=== PATIENT | female | born 1995 | race Caucasian/White ===

== ENCOUNTER 2018-01-19 15:24 | Emergency (ER) | payer BC ==
--- NOTE | 2018-01-19 15:28 | ER Report ---
History and Physical Time Seen By MD: 15:28 (DESTINI CROUCH MD) HPI/ROS CHIEF COMPLAINT: right abd pain HISTORY OF PRESENT ILLNESS: This is a 22 year old female. She is having abdominal pain on the right side. Started as a dull ache this morning and then progressing. Pain is right in upper quadrant and flank as well as extending down to the lower right abdomen as well. No fevers or chills. No injury. She has had normal bowel movements, without diarrhea or constipation. No changes in urine and no dysuria. No change with eating. (DESTINI CROUCH MD) Allergies: Coded Allergies: No Known Drug Allergies (Unverified , 01/19/18) Home Meds Reported Medications Ibuprofen (ADVIL) 200 Mg Capsule, 1-2 CAP PO Q6-8H, CAPSULE 01/20/18 Oxycodone Hcl/Acetaminophen (PERCOCET 5-325 MG TABLET) 1 Each Tablet, 1-2 EACH PO Q4-6H, TAB 01/20/18 Ondansetron (ZOFRAN ODT) 4 Mg Tab.rapdis, 4 MG PO Q6H Y for NAUSEA, TAB.COLETTE 01/20/18 Discontinued Scripts Ondansetron (ZOFRAN ODT) 4 Mg Tab.rapdis, 4 MG PO every 6 hours Y for NAUSEA/ VOMITING, #12 TAB TAKE 1 TABLET BY MOUTH EVERY 12 HOURS Prov:AMY GOMES DO 01/19/18 Oxycodone Hcl/Acetaminophen (PERCOCET 5-325 MG TABLET) 1 Each Tablet, 1-2 EACH PO Q4-6H Y for PAIN, #15 Prov:AMY GOMES DO 01/19/18 Reviewed Nurses Notes: Yes (DESTINI CROUCH MD) Constitutional Vital Sign - Last 24 Hours 01/19/18 01/19/18 01/19/18 01/19/18 15:25 15:38 15:39 15:44 Temp 97.5 Pulse 61 66 63 Resp 16 B/P (MAP) 139/65 139/65 (89) Pulse Ox 97 98 99 O2 Delivery Room Air 01/19/18 01/19/18 01/19/18 01/19/18 15:45 15:49 15:54 15:59 Pulse 62 61 65 B/P (MAP) 137/111 (120) Pulse Ox 99 100 97 01/19/18 01/19/18 01/19/18 01/19/18 16:00 16:14 16:44 16:45 Pulse 56 78 B/P (MAP) 123/88 (100) 155/79 (104) Pulse Ox 99 93 01/19/18 01/19/18 01/19/18 01/19/18 16:59 17:00 17:05 17:15 Pulse 73 64 67 B/P (MAP) 170/97 (121) 177/91 (119) Pulse Ox 93 93 86 01/19/18 01/19/18 01/19/18 01/19/18 17:30 17:35 17:40 17:45 Pulse 64 53 ??? B/P (MAP) 160/81 (107) 150/83 (105) Pulse Ox 94 98 96 01/19/18 01/19/18 01/19/18 01/19/18 18:00 18:10 18:15 18:30 Pulse ??? B/P (MAP) 173/100 (124) 174/69 (104) 168/90 (116) Pulse Ox 88 01/19/18 01/19/18 01/19/18 01/19/18 18:40 18:45 19:00 19:10 Pulse 65 76 B/P (MAP) 168/100 (122) 156/97 (116) Pulse Ox 94 95 01/19/18 01/19/18 01/19/18 01/19/18 19:15 19:30 19:40 19:45 Pulse 61 B/P (MAP) 162/85 (110) 160/92 (114) 160/85 (110) Pulse Ox 90 01/19/18 01/19/18 01/19/18 01/19/18 20:00 20:10 20:15 20:20 Pulse 61 57 B/P (MAP) 174/96 (122) 184/99 (127) Pulse Ox 100 100 01/19/18 01/19/18 20:30 20:37 Pulse 85 Resp 16 B/P (MAP) 169/82 (111) 158/87 (110) Pulse Ox 95 O2 Delivery Room Air (AMY GOMES DO) Physical Exam General Appearance: The patient is alert. Mild acute distress because of pain. Eyes: Pupils are equal, round. No pallor, injection or icterus. ENT: Mucous membranes are moist. Normal oral mucosa. Posterior oropharynx is normal. Neck: Supple and non tender. Respiratory: Lungs are clear to auscultation. Cardiovascular: Regular rate and rhythm. No murmurs, gallops or rubs. Normal capillary refill. Gastrointestinal: Abdomen is soft, tender in right upper quadrant. Pain in the right flank/CVA area as well. Some pain down into the right lower abdomen. Nondistended. Guarding and rebound present. Normal active bowel sounds. Neurological: Alert and oriented x3. No focal neurologic deficits Skin: Warm and dry. Musculoskeletal: Extremities are nontender. No tenderness in palpation of the cervical, thoracic and lumbar spine. DIFFERENTIAL DIAGNOSIS: After history and physical exam, differential diagnosis was considered for flank pain including but not limited to musculoskeletal causes, kidney stone, pyelonephritis, shingles, and intra-abdominal causes such as diverticulitis, cholecystitis and appendicitis. (DESTINI CROUCH MD) Medical Decision Making Data Points Result Diagram: 01/19/18 1444 01/19/18 1444 Laboratory Hematology Test 01/19/18 14:44 01/19/18 17:29 Red Blood Count 5.23 M/uL (4.17-5.56) Mean Corpuscular Volume 86.9 fL (80.0-96.0) Mean Corpuscular Hemoglobin 29.5 pg (26.0-33.0) Mean Corpuscular Hemoglobin Concent 33.9 g/dL (32.0-36.0) Red Cell Distribution Width 13.6 % (11.5-14.5) Mean Platelet Volume 9.5 fL (7.2-11.1) Neutrophils (%) (Auto) 74.7 % (39.4-72.5) Lymphocytes (%) (Auto) 17.8 % (17.6-49.6) Monocytes (%) (Auto) 5.9 % (4.1-12.4) Eosinophils (%) (Auto) 1.0 % (0.4-6.7) Basophils (%) (Auto) 0.6 % (0.3-1.4) Nucleated RBC Relative Count (auto) 0.0 /100WBC Neutrophils # (Auto) 10.5 K/uL (2.0-7.4) Lymphocytes # (Auto) 2.5 K/uL (1.3-3.6) Monocytes # (Auto) 0.8 K/uL (0.3-1.0) Eosinophils # (Auto) 0.1 K/uL (0.0-0.5) Basophils # (Auto) 0.1 K/uL (0.0-0.1) Nucleated RBC Absolute Count (auto) 0.00 K/uL Sodium Level 140 mmol/L (137-145) Potassium Level 4.5 mmol/L (3.5-5.0) Chloride Level 102 mmol/L (98-107) Carbon Dioxide Level 21 mmol/L (22-31) Blood Urea Nitrogen 11 mg/dl (7-18) Creatinine 0.80 mg/dl (0.52-1.04) Glomerular Filtration Rate Calc > 60.0 Random Glucose 141 mg/dl (75-110) Calcium Level 9.5 mg/dl (8.4-10.2) Total Bilirubin 0.5 mg/dl (0.2-1.3) Aspartate Amino Transf (AST/SGOT) 20 U/L (0-35) Alanine Aminotransferase (ALT/SGPT) 27 U/L (0-56) Alkaline Phosphatase 116 U/L (0-126) C-Reactive Protein 1.2 mg/dl (<1.0) Total Protein 7.8 gm/dl (6.3-8.2) Albumin 4.4 g/dl (3.5-5.0) Amylase Level 58 U/L (0-110) Lipase 40 U/L (23-300) Human Chorionic Gonadotropin, Qual Negative (NEGATIVE) Urine Color Yellow Urine Clarity Slightly-cloudy Urine pH 6.0 pH (4.8-9.5) Urine Specific [place] 1.055 Urine Protein Negative mg/dL (NEGATIVE) Urine Glucose (UA) Negative mg/dL (NEGATIVE) Urine Ketones Trace mg/dL (NEGATIVE) Urine Blood Negative (NEGATIVE) Urine Nitrite Negative (NEGATIVE) Urine Bilirubin Negative (NEGATIVE) Urine Urobilinogen Negative mg/dL (0.2-1.9) Urine Leukocyte Esterase Moderate (NEGATIVE) Urine RBC None /HPF (0-2/HPF) Urine WBC 4 /HPF (0-5/HPF) Urine Squamous Epithelial Cells Many /LPF (</=FEW) Urine Bacteria Few /HPF (NONE-FEW) Urine Mucus Few /HPF (NONE-FEW) Chemistry Test 4/6/18 14:44 01/19/18 17:29 White Blood Count 14.1 k/uL (4.5-11.0) Red Blood Count 5.23 M/uL (4.17-5.56) Hemoglobin 15.4 g/dL (12.0-16.0) Hematocrit 45.4 % (34.0-47.0) Mean Corpuscular Volume 86.9 fL (80.0-96.0) Mean Corpuscular Hemoglobin 29.5 pg (26.0-33.0) Mean Corpuscular Hemoglobin Concent 33.9 g/dL (32.0-36.0) Red Cell Distribution Width 13.6 % (11.5-14.5) Platelet Count 307 K/uL (150-450) Mean Platelet Volume 9.5 fL (7.2-11.1) Neutrophils (%) (Auto) 74.7 % (39.4-72.5) Lymphocytes (%) (Auto) 17.8 % (17.6-49.6) Monocytes (%) (Auto) 5.9 % (4.1-12.4) Eosinophils (%) (Auto) 1.0 % (0.4-6.7) Basophils (%) (Auto) 0.6 % (0.3-1.4) Nucleated RBC Relative Count (auto) 0.0 /100WBC Neutrophils # (Auto) 10.5 K/uL (2.0-7.4) Lymphocytes # (Auto) 2.5 K/uL (1.3-3.6) Monocytes # (Auto) 0.8 K/uL (0.3-1.0) Eosinophils # (Auto) 0.1 K/uL (0.0-0.5) Basophils # (Auto) 0.1 K/uL (0.0-0.1) Nucleated RBC Absolute Count (auto) 0.00 K/uL Glomerular Filtration Rate Calc > 60.0 Calcium Level 9.5 mg/dl (8.4-10.2) Total Bilirubin 0.5 mg/dl (0.2-1.3) Aspartate Amino Transf (AST/SGOT) 20 U/L (0-35) Alanine Aminotransferase (ALT/SGPT) 27 U/L (0-56) Alkaline Phosphatase 116 U/L (0-126) C-Reactive Protein 1.2 mg/dl (<1.0) Total Protein 7.8 gm/dl (6.3-8.2) Albumin 4.4 g/dl (3.5-5.0) Amylase Level 58 U/L (0-110) Lipase 40 U/L (23-300) Human Chorionic Gonadotropin, Qual Negative (NEGATIVE) Urine Color Yellow Urine Clarity Slightly-cloudy Urine pH 6.0 pH (4.8-9.5) Urine Specific [place] 1.055 Urine Protein Negative mg/dL (NEGATIVE) Urine Glucose (UA) Negative mg/dL (NEGATIVE) Urine Ketones Trace mg/dL (NEGATIVE) Urine Blood Negative (NEGATIVE) Urine Nitrite Negative (NEGATIVE) Urine Bilirubin Negative (NEGATIVE) Urine Urobilinogen Negative mg/dL (0.2-1.9) Urine Leukocyte Esterase Moderate (NEGATIVE) Urine RBC None /HPF (0-2/HPF) Urine WBC 4 /HPF (0-5/HPF) Urine Squamous Epithelial Cells Many /LPF (</=FEW) Urine Bacteria Few /HPF (NONE-FEW) Urine Mucus Few /HPF (NONE-FEW) Urinalysis Test 01/19/18 17:29 Urine Color Yellow Urine Clarity Slightly-cloudy Urine pH 6.0 pH (4.8-9.5) Urine Specific [place] 1.055 Urine Protein Negative mg/dL (NEGATIVE) Urine Glucose (UA) Negative mg/dL (NEGATIVE) Urine Ketones Trace mg/dL (NEGATIVE) Urine Blood Negative (NEGATIVE) Urine Nitrite Negative (NEGATIVE) Urine Bilirubin Negative (NEGATIVE) Urine Urobilinogen Negative mg/dL (0.2-1.9) Urine Leukocyte Esterase Moderate (NEGATIVE) Urine RBC None /HPF (0-2/HPF) Urine WBC 4 /HPF (0-5/HPF) Urine Squamous Epithelial Cells Many /LPF (</=FEW) Urine Bacteria Few /HPF (NONE-FEW) Urine Mucus Few /HPF (NONE-FEW) (AMY GOMES DO) EKG/Imaging Imaging EXAMINATION: CT abdomen and pelvis with IV contrast HISTORY: Right-sided abdominal and flank pain. TECHNIQUE: Axial CT images of the abdomen and pelvis were obtained with IV contrast, with coronal and sagittal 2D reconstructed images. One of the following dose optimization techniques was utilized in the performance of this exam: Automated exposure control; adjustment of the mA and/ or kV according to the patient's size; or use of an iterative reconstruction technique. Specific details can be referenced in the facility's radiology CT exam operational policy. Contrast: 75 mL of IV Isovue-370. COMPARISON: None. FINDINGS: Image quality is partially degraded by respiratory motion artifact, as well as artifact related to patient body habitus. Liver: Negative. Gallbladder and bile ducts: Negative. Spleen: Negative. Pancreas: Negative. Adrenal glands: There is mild diffuse thickening of the right adrenal gland with surrounding periadrenal stranding. No localized adrenal nodule or mass. The left adrenal gland is unremarkable. Kidneys: Negative. No hydronephrosis or urinary calculi. The kidneys enhance normally. Bowel and peritoneum: The small bowel and colon are normal in caliber, without evidence of obstruction or any focal inflammatory process. No bowel wall thickening. Unremarkable appendix in the right lower quadrant. No free fluid or free intraperitoneal air. Pelvic structures: Unremarkable by CT. No large adnexal cyst in the pelvis. Lymph node assessment: Negative. Vessels: Negative. Musculoskeletal: Negative. Body wall: Negative. Lung bases: Negative. IMPRESSION: 1. There is mild diffuse thickening of the right adrenal gland with surrounding periadrenal stranding. No localized mass or nodule. CT appearance is most compatible with a mild localized adrenal hemorrhage. 2. No other acute intra-abdominal findings by CT. No other source for right- sided abdominal pain is identified. 3. Unremarkable right kidney, without urinary calculi or hydronephrosis. 4. Normal appendix. Findings were discussed with DESTINI CROUCH at 01/19/2018 5:23 PM. (DESTINI CROUCH MD) Imaging Results: Ultrasound of the right upper quadrant was obtained. The results of the study are EXAMINATION: Right upper quadrant abdominal ultrasound HISTORY: Right upper quadrant abdominal pain. COMPARISON: CT abdomen/pelvis performed today. FINDINGS: Technically limited study due to patient body habitus. Liver: Normal hepatic echotexture. No focal liver lesions identified. Antegrade flow is visualized in the main portal vein. Gallbladder: Normal sonographic appearance of the gallbladder, without evidence of stones or sludge. No gallbladder wall thickening or pericholecystic fluid. Negative sonographic Coburn sign. Bile Ducts: No biliary ductal dilatation. The common duct measures 2 mm. Pancreas: Poorly visualized, obscured by overlying bowel gas. Right kidney: Normal echogenicity of the right kidney. The renal cortical parenchyma is maintained. No hydronephrosis. The right kidney measures 10.1 cm in length. Aorta: Patent and normal in caliber. IVC: Patent. Ascites: None. IMPRESSION: 1. Unremarkable gallbladder and bile ducts. 2. Poor visualization of the pancreas. The study was read by the radiologist. I viewed the images myself on the PACS system. (AMY GOMES DO) ED Course/Re-evaluation Clinical Indication for ER IV: Hydration, IV Access ED Course Mild increase in white blood cell count to 14.1 and mild shift in differential. Liver function tests are negative as is amylase and lipase. Mild increase in CRP. Urinalysis with some Leukocyte Esterase and signs of contamination, and will obtain a urine culture. (DESTINI CROUCH MD) Clinical Indication for ER IV: Hydration, IV Access ED Course Care was assumed at shift change from Dr. Lawson with a diagnostic ultrasound of the right upper quadrant pending. The ultrasound was unremarkable for acute gallbladder disease or findings in the right upper quadrant. Patient's CT scan showed a right adrenal hemorrhage. Patient's pain was controlled here with Dilaudid IV. She is discharged home to follow-up with internal medicine on Monday on Percocet and Zofran. Decision to Disposition Date: Jan 19, 2018 Decision to Disposition Time: 19:36 (AMY GOMES DO) Depart Departure Latest Vital Signs Vital Signs Date Time Temp Pulse Resp B/P (MAP) Pulse Ox O2 Delivery O2 Flow Rate FiO2 01/19/18 20:37 85 16 158/87 (110) 95 Room Air 01/19/18 15:25 97.5 (AMY GOMES DO) Impression: Primary Impression: Right upper quadrant abdominal pain Additional Impression: Adrenal hemorrhage Condition: Improved Disposition: HOME OR SELF-CARE Referrals: AYDEN JESUS MD, FARRUKH MD Patient Instructions: Abdominal Pain (ED) Additional Instructions: Do not take ibuprofen, Aleve or aspirin Follow-up with primary care early next week for continued monitoring Problem Qualifiers DESTINI CROUCH MD Jan 19, 2018 15:28 AMY GOMES DO Jan 19, 2018 19:40
[2018-01-19] MEDS ORDERED: MORPHINE 4 MG/ML SDV IVP ONE ×2 (15:30→17:10)
[2018-01-19] MEDS ORDERED: NS(*) 0.9% 1000 ML BAG 1,000 ML IV ONE (15:30)
[2018-01-19] MEDS ORDERED: ONDANSETRON 4 MG/2 ML VIAL IVP ONE ×2 (15:30→17:10)
[2018-01-19] MEDS ORDERED: IOPAMIDOL 76% 75 ML INFUS BTL 75 ML ONE (15:42)
[2018-01-19 16:02] LABS: PLATELET COUNT, AUTOMATED 307 K/uL (150-450)
--- NOTE | 2018-01-19 17:27 | RADIOLOGY IMAGING REPORT ---
FACILITY: [facility] PATIENT NAME: Edie Steiner : 1995 MR: [id number] V: [id number] EXAM DATE: ORDERING PHYSICIAN: DESTINI CROUCH TECHNOLOGIST: Location: [facility] - [place] Patient: Edie Steiner : 1995 Visit/Account:[id number] Date of Sevice: 01/19/2018 EXAMINATION: CT abdomen and pelvis with IV contrast HISTORY: Right-sided abdominal and flank pain. TECHNIQUE: Axial CT images of the abdomen and pelvis were obtained with IV contrast, with coronal a nd sagittal 2D reconstructed images. One of the following dose optimization techniques was utilized in the performance of this exam: Autom ated exposure control; adjustment of the mA and/or kV according to the patient's size; or use of an i terative reconstruction technique. Specific details can be referenced in the facility's radiology C T exam operational policy. Contrast: 75 mL of IV Isovue-370. COMPARISON: None. FINDINGS: Image quality is partially degraded by respiratory motion artifact, as well as artifact related to pa tient body habitus. Liver: Negative. Gallbladder and bile ducts: Negative. Spleen: Negative. Pancreas: Negative. Adrenal glands: There is mild diffuse thickening of the right adrenal gland with surrounding periadr enal stranding. No localized adrenal nodule or mass. The left adrenal gland is unremarkable. Kidneys: Negative. No hydronephrosis or urinary calculi. The kidneys enhance normally. Bowel and peritoneum: The small bowel and colon are normal in caliber, without evidence of obstructi on or any focal inflammatory process. No bowel wall thickening. Unremarkable appendix in the right lo wer quadrant. No free fluid or free intraperitoneal air. Pelvic structures: Unremarkable by CT. No large adnexal cyst in the pelvis. Lymph node assessment: Negative. Vessels: Negative. Musculoskeletal: Negative. Body wall: Negative. Lung bases: Negative. IMPRESSION: 1. There is mild diffuse thickening of the right adrenal gland with surrounding periadrenal stranding . No localized mass or nodule. CT appearance is most compatible with a mild localized adrenal hemorrh age. 2. No other acute intra-abdominal findings by CT. No other source for right-sided abdominal pain is i dentified. 3. Unremarkable right kidney, without urinary calculi or hydronephrosis. 4. Normal appendix. Findings were discussed with DESTINI CROUCH at 01/19/2018 5:23 PM. Report Dictated By: Bryson Zamora MD at 01/19/2018 5:01 PM Report E-Signed By: Bryson Zamora MD at 01/19/2018 5:23 PM WSN:[id number]
[2018-01-19] MEDS ORDERED: HYDROmorphone* 1 MG/ML 1 MG/ML ML IVP ONE (19:25)
[2018-01-19] MEDS ORDERED: ONDA4TAB PO (19:39)
[2018-01-19] MEDS ORDERED: OXYC-865 PO (19:39)
--- NOTE | 2018-01-19 20:31 | RADIOLOGY IMAGING REPORT ---
FACILITY: [facility] PATIENT NAME: Edie Steiner : 1995 MR: [id number] V: [id number] EXAM DATE: ORDERING PHYSICIAN: DESTINI CROUCH TECHNOLOGIST: Location: [facility] - [place], [place] Patient: Edie Steiner : 1995 Visit/Account:[id number] Date of Sevice: 01/19/2018 EXAMINATION: Right upper quadrant abdominal ultrasound HISTORY: Right upper quadrant abdominal pain. COMPARISON: CT abdomen/pelvis performed today. FINDINGS: Technically limited study due to patient body habitus. Liver: Normal hepatic echotexture. No focal liver lesions identified. Antegrade flow is visualized in the main portal vein. Gallbladder: Normal sonographic appearance of the gallbladder, without evidence of stones or sludge. No gallbladder wall thickening or pericholecystic fluid. Negative sonographic Coburn sign. Bile Ducts: No biliary ductal dilatation. The common duct measures 2 mm. Pancreas: Poorly visualized, obscured by overlying bowel gas. Right kidney: Normal echogenicity of the right kidney. The renal cortical parenchyma is maintained. N o hydronephrosis. The right kidney measures 10.1 cm in length. Aorta: Patent and normal in caliber. IVC: Patent. Ascites: None. IMPRESSION: 1. Unremarkable gallbladder and bile ducts. 2. Poor visualization of the pancreas. Report Dictated By: Bryson Zamora MD at 01/19/2018 8:21 PM Report E-Signed By: Bryson Zamora MD at 01/19/2018 8:26 PM WSN:[id number]
[2018-01-19 20:37] VITALS: BP 158/87
[2018-01-20] MEDS ORDERED: OXYC-865 PO (06:00)
[2018-01-20] MEDS ORDERED: ONDA4TAB PO (06:00)
[2018-01-20] MEDS ORDERED: IBUP200C74 PO (09:06)
== END 2018-01-19 20:47 | disposition home or self-care (01) ==
LOC: ER 15:29
DX: E27.49 Other adrenocortical insufficiency (principal)
CPT/HCPCS: 74177; 76705; 81001; 82150; 83690; 84703; 85025; 86140; 96361; 96374; 96375; 96376; 99284; J1170; J2270; J2405; J7030; Q9967; 82040; 82247; 82310; 82374; 82435; 82565; 82947; 84075; 84132; 84155; 84295; 84450; 84460; 84520

== ENCOUNTER 2018-01-20 02:55 | Inpatient (IN) | payer BC ==
[~2018-01-20 02:55] MED LIST: ONDA4TAB PO; OXYC-865 PO
--- NOTE | 2018-01-20 02:59 | ER Report ---
History and Physical Time Seen By MD: 02:58 (AMY GOMES DO) HPI/ROS CHIEF COMPLAINT: Right abdominal pain, flank pain HISTORY OF PRESENT ILLNESS: 22-year-old female returns complaining of vomiting and pain in her right flank. Patient was earlier, diagnosed with a likely mild hemorrhage of her right adrenal gland. She had an extensive evaluation including CT scan and ultrasound. Patient left the ER with good pain control. Her pain came back and she tried to take oxycodone for pain relief, but she developed vomiting and was unable to keep her medication down. She now returns with intractable pain in her right flank. REVIEW OF SYSTEMS: Respiratory: No cough, no dyspnea. Cardiovascular: No chest pain, no palpitations. Gastrointestinal: As above Musculoskeletal: No back pain. (AMY GOEMS DO) Allergies: Coded Allergies: No Known Drug Allergies (Unverified , 01/19/18) Home Meds Reported Medications Ibuprofen (ADVIL) 200 Mg Capsule, 1-2 CAP PO Q6-8H, CAPSULE 01/20/18 Oxycodone Hcl/Acetaminophen (PERCOCET 5-325 MG TABLET) 1 Each Tablet, 1-2 EACH PO Q4-6H, TAB 01/20/18 Ondansetron (ZOFRAN ODT) 4 Mg Tab.rapdis, 4 MG PO Q6H Y for NAUSEA, TAB.COLETTE 01/20/18 Discontinued Scripts Ondansetron (ZOFRAN ODT) 4 Mg Tab.rapdis, 4 MG PO every 6 hours Y for NAUSEA/ VOMITING, #12 TAB TAKE 1 TABLET BY MOUTH EVERY 12 HOURS Prov:AMY GOMES DO 01/19/18 Oxycodone Hcl/Acetaminophen (PERCOCET 5-325 MG TABLET) 1 Each Tablet, 1-2 EACH PO Q4-6H Y for PAIN, #15 Prov:AMY GOMES DO 01/19/18 Reviewed Nurses Notes: Yes Old Medical Records Reviewed: Yes (AMY GOMES DO) Constitutional Vital Sign - Last 24 Hours 01/20/18 01/20/18 01/20/18 01/20/18 03:01 03:10 03:40 03:55 Temp 98.9 Pulse 109 72 97 93 Resp 24 Pulse Ox 94 97 95 100 O2 Delivery Room Air 01/20/18 01/20/18 01/20/18 01/20/18 04:00 04:10 04:15 04:20 Pulse 64 60 61 B/P (MAP) 180/87 (118) Pulse Ox 100 100 01/20/18 01/20/18 01/20/18 01/20/18 04:30 04:50 05:00 05:05 Pulse 54 58 B/P (MAP) 161/91 (114) 183/95 (124) Pulse Ox 100 100 01/20/18 01/20/18 01/20/18 01/20/18 05:10 05:25 05:30 05:35 Pulse ??? 104 57 70 B/P (MAP) 177/90 (119) Pulse Ox 100 97 99 97 01/20/18 01/20/18 01/20/18 01/20/18 05:50 05:55 06:00 06:10 Pulse 84 72 58 B/P (MAP) 176/78 (110) Pulse Ox 71 99 98 01/20/18 01/20/18 01/20/18 01/20/18 06:25 06:30 06:50 07:00 Pulse 64 59 B/P (MAP) 165/86 (112) 164/113 (130) Pulse Ox 96 99 (SHAKIR PAIZ MD) Physical Exam General Appearance: The patient is alert, has no immediate need for airway protection and no current signs of toxicity. Moderate distress, slightly pale appearing, skin warm and dry HEENT: Pupils equal and round no injection. Oropharynx without redness or exudate, mucous members are moist Respiratory: Chest is non tender, lungs are clear to auscultation. Cardiac: regular rate and rhythm Gastrointestinal: Abdomen is soft, mild right upper quadrant tenderness, no masses, bowel sounds normal. Musculoskeletal: Neck: Neck is supple and non tender. Extremities have full range of motion and are non tender. Skin: No rashes or lesions. DIFFERENTIAL DIAGNOSIS: After history and physical exam differential diagnosis was considered for abdominal pain including but not limited to appendicitis, cholecystitis, adrenal hemorrhage, infection, kidney stone, UTI, gastritis and urinary tract infection. (AMY GOMES DO) Medical Decision Making Data Points Result Diagram: 01/20/18 0330 01/20/18 0330 Laboratory Hematology Test 01/20/18 03:30 Red Blood Count 4.95 M/uL (4.17-5.56) Mean Corpuscular Volume 86.6 fL (80.0-96.0) Mean Corpuscular Hemoglobin 29.4 pg (26.0-33.0) Mean Corpuscular Hemoglobin Concent 34.0 g/dL (32.0-36.0) Red Cell Distribution Width 13.4 % (11.5-14.5) Mean Platelet Volume 9.5 fL (7.2-11.1) Neutrophils (%) (Auto) 79.8 % (39.4-72.5) Lymphocytes (%) (Auto) 14.1 % (17.6-49.6) Monocytes (%) (Auto) 5.3 % (4.1-12.4) Eosinophils (%) (Auto) 0.4 % (0.4-6.7) Basophils (%) (Auto) 0.4 % (0.3-1.4) Nucleated RBC Relative Count (auto) 0.1 /100WBC Neutrophils # (Auto) 13.2 K/uL (2.0-7.4) Lymphocytes # (Auto) 2.3 K/uL (1.3-3.6) Monocytes # (Auto) 0.9 K/uL (0.3-1.0) Eosinophils # (Auto) 0.1 K/uL (0.0-0.5) Basophils # (Auto) 0.1 K/uL (0.0-0.1) Nucleated RBC Absolute Count (auto) 0.02 K/uL Prothrombin Time 13.6 seconds (12.0-14.4) Prothromb Time International Ratio 1.04 Activated Partial Thromboplast Time 30 seconds (23-35) Sodium Level 139 mmol/L (137-145) Potassium Level 4.0 mmol/L (3.5-5.0) Chloride Level 101 mmol/L (98-107) Carbon Dioxide Level 24 mmol/L (22-31) Blood Urea Nitrogen 7 mg/dl (7-18) Creatinine 0.80 mg/dl (0.52-1.04) Glomerular Filtration Rate Calc > 60.0 Random Glucose 120 mg/dl (75-110) Calcium Level 9.4 mg/dl (8.4-10.2) Total Bilirubin 0.5 mg/dl (0.2-1.3) Aspartate Amino Transf (AST/SGOT) 17 U/L (0-35) Alanine Aminotransferase (ALT/SGPT) 24 U/L (0-56) Alkaline Phosphatase 114 U/L (0-126) Total Protein 7.5 gm/dl (6.3-8.2) Albumin 4.1 g/dl (3.5-5.0) Amylase Level 55 U/L (0-110) Lipase 60 U/L (23-300) Chemistry Test 01/20/18 03:30 White Blood Count 16.5 k/uL (4.5-11.0) Red Blood Count 4.95 M/uL (4.17-5.56) Hemoglobin 14.6 g/dL (12.0-16.0) Hematocrit 42.8 % (34.0-47.0) Mean Corpuscular Volume 86.6 fL (80.0-96.0) Mean Corpuscular Hemoglobin 29.4 pg (26.0-33.0) Mean Corpuscular Hemoglobin Concent 34.0 g/dL (32.0-36.0) Red Cell Distribution Width 13.4 % (11.5-14.5) Platelet Count 286 K/uL (150-450) Mean Platelet Volume 9.5 fL (7.2-11.1) Neutrophils (%) (Auto) 79.8 % (39.4-72.5) Lymphocytes (%) (Auto) 14.1 % (17.6-49.6) Monocytes (%) (Auto) 5.3 % (4.1-12.4) Eosinophils (%) (Auto) 0.4 % (0.4-6.7) Basophils (%) (Auto) 0.4 % (0.3-1.4) Nucleated RBC Relative Count (auto) 0.1 /100WBC Neutrophils # (Auto) 13.2 K/uL (2.0-7.4) Lymphocytes # (Auto) 2.3 K/uL (1.3-3.6) Monocytes # (Auto) 0.9 K/uL (0.3-1.0) Eosinophils # (Auto) 0.1 K/uL (0.0-0.5) Basophils # (Auto) 0.1 K/uL (0.0-0.1) Nucleated RBC Absolute Count (auto) 0.02 K/uL Prothrombin Time 13.6 seconds (12.0-14.4) Prothromb Time International Ratio 1.04 Activated Partial Thromboplast Time 30 seconds (23-35) Glomerular Filtration Rate Calc > 60.0 Calcium Level 9.4 mg/dl (8.4-10.2) Total Bilirubin 0.5 mg/dl (0.2-1.3) Aspartate Amino Transf (AST/SGOT) 17 U/L (0-35) Alanine Aminotransferase (ALT/SGPT) 24 U/L (0-56) Alkaline Phosphatase 114 U/L (0-126) Total Protein 7.5 gm/dl (6.3-8.2) Albumin 4.1 g/dl (3.5-5.0) Amylase Level 55 U/L (0-110) Lipase 60 U/L (23-300) Coagulation Test 01/20/18 03:30 Prothrombin Time 13.6 seconds Prothromb Time International Ratio 1.04 Activated Partial Thromboplast Time 30 seconds (SHAKIR PAIZ MD) EKG/Imaging Imaging Results: Ultrasound of the right upper quadrant was obtained. The results of the study are EXAMINATION: Right upper quadrant abdominal ultrasound HISTORY: Right upper quadrant abdominal pain. COMPARISON: CT abdomen/pelvis performed today. FINDINGS: Technically limited study due to patient body habitus. Liver: Normal hepatic echotexture. No focal liver lesions identified. Antegrade flow is visualized in the main portal vein. Gallbladder: Normal sonographic appearance of the gallbladder, without evidence of stones or sludge. No gallbladder wall thickening or pericholecystic fluid. Negative sonographic Coburn sign. Bile Ducts: No biliary ductal dilatation. The common duct measures 2 mm. Pancreas: Poorly visualized, obscured by overlying bowel gas. Right kidney: Normal echogenicity of the right kidney. The renal cortical parenchyma is maintained. No hydronephrosis. The right kidney measures 10.1 cm in length. Aorta: Patent and normal in caliber. IVC: Patent. Ascites: None. IMPRESSION: 1. Unremarkable gallbladder and bile ducts. 2. Poor visualization of the pancreas. The study was read by the radiologist. I viewed the images myself on the PACS system. (AMY GOMES DO) Imaging FACILITY: [facility] PATIENT NAME: Edie Steiner : 1995 MR: [id number] V: [id number] EXAM DATE: ORDERING PHYSICIAN: AMY GOMES TECHNOLOGIST: Location: [facility] - [place] Patient: Edie Steiner : 1995 Visit/Account:[id number] Date of Sevice: 01/20/2018 CT of the chest, abdomen, and pelvis without contrast: Indication: Right flank pain and upper quadrant pain. Follow-up evaluation of suspected right adrenal hemorrhage. Technique: Helical CT was performed through the chest, abdomen, and pelvis without contrast. Multiplanar reconstructions are reviewed. Image quality is suboptimal, due to artifact related to large body habitus. One of the following dose optimization techniques was utilized in the performance of this exam: Automated exposure control; adjustment of the mA and/ or kV according to the patient's size; or use of an iterative reconstruction technique. Specific details can be referenced in the facility's radiology CT exam operational policy. Comparison: A prior study from 01/19/2018. Findings: Lungs: Well-expanded. No focal or diffuse opacities. Pleural spaces: No evidence of effusion, focal pleural thickening, or pneumothorax. Mediastinum: Within normal limits. No evidence of hemorrhage, mass, or lymph node enlargement. The heart and pericardial soft tissues are unremarkable. Liver: Unremarkable and unchanged. Gallbladder and biliary tree: There is partial opacification of the gallbladder lumen, related to the prior CT contrast injection. The bile ducts are not dilated. Pancreas: Unremarkable and unchanged. Spleen: Unremarkable and unchanged. Adrenal glands: The right adrenal hemorrhage has increased in size, and now measures approximately 5.2 x 3.6 x 2.5 cm. The left adrenal gland is unremarkable and unchanged. Kidneys: The kidneys are normal in size, shape, and density. There are no signs of obstruction. Intestinal structures: Unremarkable and unchanged. Urinary bladder: There is uniform opacification of the lumen, related to the prior CT contrast injection. Pelvic structures: Unremarkable and unchanged. Ascites or fluid collections: There is no evidence of ascites or intraperitoneal fluid collection. There are no signs of additional retroperitoneal hemorrhage. Skeletal structures: Intact and unchanged. IMPRESSION: Increased right adrenal hemorrhage. No evidence of left adrenal hemorrhage. Otherwise unremarkable and unchanged. Report Dictated By: Waldemar Castillo MD at 01/20/2018 7:13 AM Report E-Signed By: Waldemar Castillo MD at 01/20/2018 7:24 AM [id number] (SHAKIR PAIZ MD) ED Course/Re-evaluation Clinical Indication for ER IV: Hydration, IV Access ED Course 01/20/2018 5:52:13 am case discussed with Dr. Madi Saab hospitalist on-call , before admission. CT scan to see if her right adrenal hemorrhages has changed. Decision to Disposition Date: Jan 20, 2018 Decision to Disposition Time: 05:52 (AMY GOMES DO) ED Course 01/20/2018 7:50:38 am case discussed with Dr. Lilliam Saab who is custom van converter as the hospitalist. Slight increase in right adrenal hemorrhage side no change on the CT scan of the abdomen and pelvis from prior study earlier yesterday. Plan at this time will be admission for pain control. Decision to Disposition Date: Jan 20, 2018 Decision to Disposition Time: 07:51 (SHAKIR PAIZ MD) Depart Departure Latest Vital Signs Vital Signs Date Time Temp Pulse Resp B/P (MAP) Pulse Ox O2 Delivery O2 Flow Rate FiO2 01/20/18 07:00 164/113 (130) 01/20/18 06:50 59 99 01/20/18 03:01 98.9 24 Room Air (SHAKIR PAIZ MD) Impression: Primary Impression: Right upper quadrant abdominal pain Additional Impression: Adrenal hemorrhage Condition: Improved Disposition: Admitted from ER Problem Qualifiers AMY GOMES DO Jan 20, 2018 02:59 SHAKIR PAIZ MD Jan 20, 2018 07:51
[2018-01-20] MEDS ORDERED: NS(*) 0.9% 1000 ML BAG 1,000 ML IV ONE (03:04)
[2018-01-20] MEDS ORDERED: PROMETHAZINE 25 MG/ML 1 ML AMP IVP ONE (03:05)
[2018-01-20] MEDS ORDERED: HYDROmorphone* 1 MG/ML 1 MG/ML ML IVP ONE ×5 (03:05→13:05)
[2018-01-20] MEDS ORDERED: ONDANSETRON 4 MG/2 ML VIAL IVP ONE ×2 (03:25→04:00)
[2018-01-20 03:47] LABS: PLATELET COUNT, AUTOMATED 286 K/uL (150-450)
[2018-01-20 03:50] LABS: INR 1.04
[2018-01-20] MEDS ORDERED: ACETAMINOPHEN(*)1000 MG/100 ML 100 ML IVPB ONE (05:00)
[2018-01-20] MEDS ORDERED: ONDA4TAB PO (06:00)
[2018-01-20] MEDS ORDERED: OXYC-865 PO (06:00)
[2018-01-20] MEDS ORDERED: NS 0.9% 150 ML BAG 150 ML ONE (06:16)
[2018-01-20] MEDS ORDERED: IOPAMIDOL 76% 75 ML INFUS BTL 0 ML ONE (06:16)
--- NOTE | 2018-01-20 07:27 | RADIOLOGY IMAGING REPORT ---
FACILITY: [facility] - [place] PATIENT NAME: Edie Steiner : 1995 MR: [id number] V: [id number] EXAM DATE: ORDERING PHYSICIAN: AMY GOMES TECHNOLOGIST: Location: [facility] Patient: Edie Steiner : 1995 Visit/Account:[id number] Date of Sevice: 01/20/2018 CT of the chest, abdomen, and pelvis without contrast: Indication: Right flank pain and upper quadrant pain. Follow-up evaluation of suspected right adrenal hemorrhage. Technique: Helical CT was performed through the chest, abdomen, and pelvis without contrast. Multipl laurie reconstructions are reviewed. Image quality is suboptimal, due to artifact related to large body habitus. One of the following dose optimization techniques was utilized in the performance of this exam: Autom ated exposure control; adjustment of the mA and/or kV according to the patient's size; or use of an i terative reconstruction technique. Specific details can be referenced in the facility's radiology C T exam operational policy. Comparison: A prior study from 01/19/2018. Findings: Lungs: Well-expanded. No focal or diffuse opacities. Pleural spaces: No evidence of effusion, focal pleural thickening, or pneumothorax. Mediastinum: Within normal limits. No evidence of hemorrhage, mass, or lymph node enlargement. The he art and pericardial soft tissues are unremarkable. Liver: Unremarkable and unchanged. Gallbladder and biliary tree: There is partial opacification of the gallbladder lumen, related to the prior CT contrast injection. The bile ducts are not dilated. Pancreas: Unremarkable and unchanged. Spleen: Unremarkable and unchanged. Adrenal glands: The right adrenal hemorrhage has increased in size, and now measures approximately 5. 2 x 3.6 x 2.5 cm. The left adrenal gland is unremarkable and unchanged. Kidneys: The kidneys are normal in size, shape, and density. There are no signs of obstruction. Intestinal structures: Unremarkable and unchanged. Urinary bladder: There is uniform opacification of the lumen, related to the prior CT contrast inject ion. Pelvic structures: Unremarkable and unchanged. Ascites or fluid collections: There is no evidence of ascites or intraperitoneal fluid collection. There are no signs of additional retroperitoneal hemorrhage. Skeletal structures: Intact and unchanged. IMPRESSION: Increased right adrenal hemorrhage. No evidence of left adrenal hemorrhage. Otherwise unremarkable and unchanged. Report Dictated By: Waldemar Castillo MD at 01/20/2018 7:13 AM Report E-Signed By: Waldemar Castillo MD at 01/20/2018 7:24 AM [id number]
[2018-01-20] MEDS ORDERED: LORazepam 2 MG/ML VIAL IVP ONE (08:00)
[2018-01-20 09:01] VITALS: BP 197/96
[2018-01-20] MEDS ORDERED: IBUP200C74 PO (09:06)
[2018-01-20] MEDS ORDERED: NALOXONE HCL 0.4 MG/ML VIAL IVP PRN (09:15)
[2018-01-20] MEDS: HYDROmorphone PCA 6 MG/30 ML IV PRN ×2 (09:28→22:19)
[2018-01-20] MEDS: NS(*) 0.9% 1000 ML BAG 1,000 ML IV PRN ×2 (09:28→22:19)
[2018-01-20] MEDS ORDERED: ACETAMINOPHEN 325 MG TAB PO PRN (09:55)
[2018-01-20] MEDS ORDERED: ONDANSETRON 4 MG/2 ML VIAL IVP PRN (09:55)
--- NOTE | 2018-01-20 10:21 | History & Physical ---
History of Present Illness Chief Complaint The patient is a 22 year old with PMH only significant for obesity who presents with abdominal pain since awakening yesterday morning. History of Present Illness The patient states she woke from sleep on 01/19 with some abdominal and flank pain. This was associated with some nausea. The pain steadily increased and she presented to Urgent Care for evaluation. Because she had severe pain, it was recommended she go to [facility] ER for further evaluation. In the ER, she had an abdominal CT that showed a right adrenal hemorrhage. The patient had no obvious cause for this. She is morbidly obese but otherwise healthy. She denies recent trauma. She has never had surgery. She takes no medications. Her only childhood illness was croup. She was sent home with pain medications and antiemetics, but could not keep her pain meds down. Her pain worsened overnight. She presented back to [facility] ER early this am for evaluation. CT scan of the chest/abdomen/ pelvis was done. The right adrenal hemorrhage had extended some. There were no other acute findings. UA was a poor specimen with many squamous epithelial cells. She did have 4 WBCs/HPF but has been completely asymptomatic. The patient has no FH of clotting issues. She does have a maternal aunt with lupus. She does not smoke and uses alcohol socially. History Problems: (1) No active medical problems (2) History of nephrolithiasis Status: Resolved Home Meds Active Scripts Oxycodone Hcl/Acetaminophen (PERCOCET 5-325 MG TABLET) 1 Each Tablet, 1 EACH PO Q6H Y for PAIN, #12 TAB Prov:LENI HUBBARD HOT PLATE PRESS OPERATOR 01/22/18 Ondansetron (ZOFRAN ODT) 4 Mg Tab.rapdis, 4 MG PO Q12H Y for NAUSEA, #20 TAB.COLETTE Prov:LENI HUBBARD HOT PLATE PRESS OPERATOR 01/22/18 Amlodipine Besylate (AMLODIPINE BESYLATE) 5 Mg Tablet, 1 TAB PO QDAY, #30 TAB Prov:LENI HUBBARD HOT PLATE PRESS OPERATOR 01/22/18 Discontinued Reported Medications Ibuprofen (ADVIL) 200 Mg Capsule, 1-2 CAP PO Q6-8H, CAPSULE 01/20/18 Oxycodone Hcl/Acetaminophen (PERCOCET 5-325 MG TABLET) 1 Each Tablet, 1-2 EACH PO Q4-6H, TAB 01/20/18 Ondansetron (ZOFRAN ODT) 4 Mg Tab.rapdis, 4 MG PO Q6H Y for NAUSEA, TAB.COLETTE 01/20/18 Discontinued Scripts Ondansetron (ZOFRAN ODT) 4 Mg Tab.rapdis, 4 MG PO every 6 hours Y for NAUSEA/ VOMITING, #12 TAB TAKE 1 TABLET BY MOUTH EVERY 12 HOURS Prov:AMY GOMES DO 01/19/18 Oxycodone Hcl/Acetaminophen (PERCOCET 5-325 MG TABLET) 1 Each Tablet, 1-2 EACH PO Q4-6H Y for PAIN, #15 Prov:AMY GOMES DO 01/19/18 Allergies: Coded Allergies: No Known Drug Allergies (Unverified , 01/19/18) Patient History: FH: lupus AUNT Other Social/Family Hx The patient is single and lives in [place]. 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 Hx Smoking: No Hx Alcohol Use: Yes (socially) Hx Substance Use Disorder: No History of IV Drug Use: No Review of Systems All Systems Reviewed/Normal: Yes, Except as Noted Constitutional: No Fever, No Chills Neurological: No Weakness Eyes: No Vision Change ENT: No Hearing Loss Cardiovascular: No Chest Pain Respiratory: No Shortness of Breath Gastrointestinal: Nausea, Other (R abdominal and flank pain) Genitourinary: No Dysuria Exam Vital Signs Vital Signs Date Time Temp Pulse Resp B/P (MAP) Pulse Ox O2 Delivery O2 Flow Rate FiO2 01/22/18 07:05 98 Nasal Cannula 1.0 01/22/18 07:00 98.4 74 16 142/64 (90) General Appearance: Alert, Awake, Other (Morbidly obese. In some distress due to pain.) Neuro: No Gross deficits Eyes: PERRLA Cardiovascular: Regular Rate and Rhythm Respiratory: Clear to Auscultation GI: Other (Obese, nontender on the left. tender with voluntary guarding RUQ. R flank markedly tender to palpation.) Lymph: Cervical Nodes Benign Extremities: Warm, Perfused Integumentary: Other (Multiple tattoos.) Psych: Alert & Oriented X3, Appropriate Mood & Affect Medical Decision Making Data Points Result Diagram: 01/21/18 0530 01/21/18 0530 EKG / Imaging Imaging FACILITY: [facility] - [place] PATIENT NAME: Edie Steiner : 1995 MR: [id number] V: [id number] EXAM DATE: ORDERING PHYSICIAN: AMY GOMES TECHNOLOGIST: Location: [facility] [place] Patient: Edie Steiner : 1995 Visit/Account:[id number] Date of Sevice: 01/20/2018 CT of the chest, abdomen, and pelvis without contrast: Indication: Right flank pain and upper quadrant pain. Follow-up evaluation of suspected right adrenal hemorrhage. Technique: Helical CT was performed through the chest, abdomen, and pelvis without contrast. Multiplanar reconstructions are reviewed. Image quality is suboptimal, due to artifact related to large body habitus. One of the following dose optimization techniques was utilized in the performance of this exam: Automated exposure control; adjustment of the mA and/ or kV according to the patient's size; or use of an iterative reconstruction technique. Specific details can be referenced in the facility's radiology CT exam operational policy. Comparison: A prior study from 01/19/2018. Findings: Lungs: Well-expanded. No focal or diffuse opacities. Pleural spaces: No evidence of effusion, focal pleural thickening, or pneumothorax. Mediastinum: Within normal limits. No evidence of hemorrhage, mass, or lymph node enlargement. The heart and pericardial soft tissues are unremarkable. Liver: Unremarkable and unchanged. Gallbladder and biliary tree: There is partial opacification of the gallbladder lumen, related to the prior CT contrast injection. The bile ducts are not dilated. Pancreas: Unremarkable and unchanged. Spleen: Unremarkable and unchanged. Adrenal glands: The right adrenal hemorrhage has increased in size, and now measures approximately 5.2 x 3.6 x 2.5 cm. The left adrenal gland is unremarkable and unchanged. Kidneys: The kidneys are normal in size, shape, and density. There are no signs of obstruction. Intestinal structures: Unremarkable and unchanged. Urinary bladder: There is uniform opacification of the lumen, related to the prior CT contrast injection. Pelvic structures: Unremarkable and unchanged. Ascites or fluid collections: There is no evidence of ascites or intraperitoneal fluid collection. There are no signs of additional retroperitoneal hemorrhage. Skeletal structures: Intact and unchanged. IMPRESSION: Increased right adrenal hemorrhage. No evidence of left adrenal hemorrhage. Otherwise unremarkable and unchanged. Report Dictated By: Waldemar Castillo MD at 01/20/2018 7:13 AM Report E-Signed By: Waldemar Castillo MD at 01/20/2018 7:24 AM [id number] Pre-Admit Course Medical Record Review: Yes (Reviewed ER visit 01/19.) Assessment and Plan Problems: (1) Adrenal hemorrhage Status: Acute Assessment & Plan: Unilateral on the right. Admit for fluids as she has N&V with this. Will place on Dilaudid BAR HOST/HOSTESS for pain control. IV antiemetics. Will order anti-phospholipid antibodies for further evaluation. Time Spent on Plan of Care: < 30 min Venous Thromboembolism VTE Risk Physician Assess for VTE Risk: Yes Patient's VTE Risk: Low VTE Diagnostic Test 2 Days Prior to Admit: No Antithrombotics Is Pt On Any Antithrombotics?: No Prophylaxis Tx Contraindicated Pharmacological Contraindicati: Active Bleeding Exam Sepsis Risk: No Definite Risk YO SHINE MD Jan 20, 2018 10:21
[2018-01-20] MEDS ORDERED: PROMETHAZINE 25 MG/ML 1 ML AMP IVP PRN (10:25)
[2018-01-20 12:15] VITALS: BP 176/95
[2018-01-20 14:50] VITALS: BP 165/85
[2018-01-20 19:04] VITALS: BP 175/94
[2018-01-20 22:52] VITALS: BP 177/99
[2018-01-21 04:42] VITALS: BP 168/88
[2018-01-21 05:40] LABS: PLATELET COUNT, AUTOMATED 231 K/uL (150-450)
[2018-01-21 07:00] VITALS: BP 146/80
[2018-01-21] MEDS ORDERED: HYDROmorphone HCL 2 MG/ML SDV IVP PRN (08:20)
[2018-01-21] MEDS ORDERED: amLODIPine BESYL(*) 2.5 MG TAB PO SCH (09:00)
[2018-01-21 10:47] VITALS: BP 152/84
--- NOTE | 2018-01-21 13:15 | Hospitalist Progress Note ---
Subjective Progress Notes Subjective This patient was admitted for adrenal hemorrhage. She had no acute events overnight. Patient Complains of: Cardiovascular: No: Chest Pain Respiratory: No: Shortness of Breath Physical Exam Vital Signs Date Time Temp Pulse Resp B/P (MAP) Pulse Ox O2 Delivery O2 Flow Rate FiO2 01/21/18 10:47 99.1 96 16 152/84 (106) 92 Nasal Cannula 1.0 Intake and Output 01/22/18 07:00 # Voids 1 Cardiovascular: Regular Rate and Rhythm Respiratory: Clear to Auscultation GI: Soft and Non-Tender Extremities: No Edema Result Diagram: 01/21/1852901/21/18529 Assessment and Plan Problems: (1) Adrenal hemorrhage Status: Acute Assessment & Plan: She was placed on MINUTE CLERK overnight. We switched her to oral pain medicine today. A work up for lupus is pending. Exam Sepsis Risk: Sepsis Risk RHONA OZUNA DO Jan 21, 2018 13:15
[2018-01-21 15:13] VITALS: BP 162/91
[2018-01-21 15:29] VITALS: BP 180/93
[2018-01-21 19:14] VITALS: BP 160/73
[2018-01-22 04:07] VITALS: BP 135/77
[2018-01-22 07:00] VITALS: BP 142/64
[2018-01-22] MEDS ORDERED: OXYC-865 PO (08:42)
[2018-01-22] MEDS ORDERED: AMLO-96 PO (08:42)
[2018-01-22] MEDS ORDERED: ONDA4TAB PO (08:42)
--- NOTE | 2018-01-22 08:46 | Hospitalist Depart ---
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 She was switched to oral pain medicine, which seemed to help her pain. A work up for lupus is still pending. She will establish with new primary care to follow up lupus evaluation. (2) Hypertension Hospital Course & Plan: She will be started on Amlodipine 5mg daily. She will follow up with PCP regarding blood pressure. Departure Latest Vital Signs Vital Signs 01/22/18 01/22/18 07:00 07:05 Temp 98.4 Pulse 74 Resp 16 B/P (MAP) 142/64 (90) Pulse Ox 98 O2 Delivery Nasal Cannula O2 Flow Rate 1.0 Weight (Pounds): 440 Result Diagram: 01/21/1852901/21/18529 Condition: Improved Discharge: Home, Self Care Discharge Instructions Home Meds Active Scripts Oxycodone Hcl/Acetaminophen (PERCOCET 5-325 MG TABLET) 1 Each Tablet, 1 EACH PO Q6H Y for PAIN, #12 TAB Prov:LENI HUBBARD POWER BRAKE OPERATOR 01/22/18 Ondansetron (ZOFRAN ODT) 4 Mg Tab.rapdis, 4 MG PO Q12H Y for NAUSEA, #20 TAB.COLETTE Prov:LENI HUBBARD POWER BRAKE OPERATOR 01/22/18 Amlodipine Besylate (AMLODIPINE BESYLATE) 5 Mg Tablet, 1 TAB PO QDAY, #30 TAB Prov:LENI HUBBARD POWER BRAKE OPERATOR 01/22/18 Reported Medications Ibuprofen (ADVIL) 200 Mg Capsule, 1-2 CAP PO Q6-8H, CAPSULE 01/20/18 Oxycodone Hcl/Acetaminophen (PERCOCET 5-325 MG TABLET) 1 Each Tablet, 1-2 EACH PO Q4-6H, TAB 01/20/18 Ondansetron (ZOFRAN ODT) 4 Mg Tab.rapdis, 4 MG PO Q6H Y for NAUSEA, TAB.COLETTE 01/20/18 Discontinued Scripts Ondansetron (ZOFRAN ODT) 4 Mg Tab.rapdis, 4 MG PO every 6 hours Y for NAUSEA/ VOMITING, #12 TAB TAKE 1 TABLET BY MOUTH EVERY 12 HOURS Prov:AMY GOMES DO 01/19/18 Oxycodone Hcl/Acetaminophen (PERCOCET 5-325 MG TABLET) 1 Each Tablet, 1-2 EACH PO Q4-6H Y for PAIN, #15 Prov:MIREYAAMY Noah DO 01/19/18 Diet: Regular Activity: As Tolerated Venous Thromboembolism Antithrombotics Is Pt On Any Antithrombotics?: No Problem Qualifiers (1) Hypertension: Hypertension type: essential hypertension Qualified Codes: I10 - Essential ( primary) hypertension LENI HUBBARD POWER BRAKE OPERATOR Jan 22, 2018 08:46
[2018-01-22] MEDS ORDERED: amLODIPine BESYL(*) 2.5 MG TAB PO SCH (09:00)
[2018-01-22] MEDS ORDERED: INFLUENZA VIRUS VAC 0.5 ML SYR IM ONLY ONE (09:00)
== END 2018-01-22 10:20 | disposition home or self-care (01) | DRG 645 ==
LOC: ER 03:18 → MED 08:16
PROVIDERS: ADMIT Internal Medicine; ATTEND Internal Medicine
DX: E27.49 Other adrenocortical insufficiency (principal); I10 Essential (primary) hypertension; E66.01 Morbid (severe) obesity due to excess calories
CPT/HCPCS: 36415; 71250; 74176; 82040; 82150; 82247; 82310; 82374; 82435; 82565; 82947; 83690; 84075; 84132; 84155; 84295; 84450; 84460; 84520; 85025; 85610; 85730; 86147; 96361; 96374; 96375; 96376; 99285; J0131; J1170; J2060; J2405; J2550; J7030; Q9967

== ENCOUNTER → 2018-02-09 | Outpatient (CLI) | payer BC ==
[~2018-02-09] MED LIST changes: +AMLO-96 PO; +IBUP200C74 PO
--- NOTE | 2018-02-09 13:41 | RADIOLOGY IMAGING REPORT ---
FACILITY: PATIENT NAME: Edie Steiner : 1995 MR: [id number] V: [id number] EXAM DATE: ORDERING PHYSICIAN: DESTINEY ABDUL TECHNOLOGIST: Location: [facility] [place] Patient: Edie Steiner : 1995 Visit/Account:[id number] Date of Sevice: 02/09/2018 ABD SINGLE ORGAN/QUAD/FOLLOWUP HISTORY: Residual gland hemorrhage COMPARISON: CT chest abdomen pelvis January 20, 2018 FINDINGS: The recently reported right adrenal hemorrhage appears is a diffuse hypoechoic masslike area above th e right kidney and measures 5.7 x 2.4 x 3.3 cm. This mass previously measured 5.2 x 3.6 x 2.5 cm. T he visualized portion of the adjacent right lobe of the liver and visual as portion the right kidney appear unremarkable. IMPRESSION: Previous noted right adrenal hemorrhage now measures 5.7 x 2.4 x 3.3 cm as opposed to 5.2 x 3.6 x 2.5 cm. Report Dictated By: Michelle Crowder MD at 02/09/2018 1:34 PM Report E-Signed By: Michelle Crowder MD at 02/09/2018 1:37 PM WSN:[email or web address]
== END ==
LOC: US 03:22
PROVIDERS: ATTEND Family Medicine
DX: E27.49 Other adrenocortical insufficiency (principal)
CPT/HCPCS: 76705

== ENCOUNTER → 2018-08-15 | Outpatient (CLI) | payer BC ==
[~2018-08-15] MED LIST changes: +AMLO-111 PO; -AMLO-96 PO
--- NOTE | 2018-08-15 13:08 | RADIOLOGY IMAGING REPORT ---
FACILITY: [facility] - [place], [place] PATIENT NAME: Edie Steiner : 1995 MR: [id number] V: [id number] EXAM DATE: ORDERING PHYSICIAN: DESTINEY ABDUL TECHNOLOGIST: Location: [facility] Patient: Edie Steiner : 1995 Visit/Account:[id number] Date of Sevice: 08/15/2018 Exam type: KIDNEYS History: Reevaluate adrenal hemorrhage. Comparison: None. Findings: Limited ultrasound of the right adrenal gland region There is focal heterogeneous increased echogenicity within the expected region of the right adrenal g land measuring approximately 4.3 x 3.6 x 2.3 cm. This area was hypoechoic on the prior exam, measurin g approximately 5.7 x 3.3 x 2.4 cm. IVC and abdominal aorta are patent. IMPRESSION: Right adrenal hemorrhage appears slightly decreased in size and is now increased in echogenicity. The oretically, the hypoechoic/anechoic focus on the prior ultrasound could have represented the gallblad vickey although felt unlikely. The change in echogenicity is likely related to evolving hemorrhage. Rosa ot exclude new hemorrhage although the overall size appears to be decreasing. Report Dictated By: Johan Bey MD at 08/15/2018 12:57 PM Report E-Signed By: Johan Bey MD at 08/15/2018 1:04 PM WSN:[id number]
== END ==
LOC: US 09:23
PROVIDERS: ATTEND Family Medicine
DX: E27.49 Other adrenocortical insufficiency (principal)
CPT/HCPCS: 76705